=== PATIENT | female | born 1995 | race Asian ===

== ENCOUNTER 2017-06-21 12:58 | Emergency (ER) | payer OTHER ==
[~2017-06-21] VITALS: Ht 157.5 cm; Wt 55.4 kg
[2017-06-21 13:05] VITALS: Ht 157.5 cm; Wt 55.4 kg
--- NOTE | 2017-06-21 13:37 | EMERGENCY ROOM VISIT NOTE ---
History First contact with patient: 13:10 Chief Complaint: FLU LIKE SX Stated Complaint: SICK History of Present Illness The patient is a 21 year old female who presents to the Emergency Room with complaints of cold symptoms and left eye redness. The patient states that she has had cold symptoms for 2 weeks. She states she has had a sore throat, mild cough and nasal congestion. She has not had any fevers, shortness of breath, neck pain, headache, nausea or vomiting. She does state that she woke up this morning in her left eye was red and slightly irritated. She rates her pain a / 10. She does admit that she slept in her contact lenses last night. She denies any injuries to the eye. Her tetanus is up-to-date. Review of Systems A complete 10 point review of systems was reviewed with the patient with pertinent positives and negatives as per history of present illness. All else were negative. Past Medical/Surgical History Medical Problems: (1) No significant active problems Social History Smoking Status: Never Smoker Alcohol Use: occasionally Housing Status: lives with roommate Occupation Status: [employer] student Physical Exam Vital Signs Date Time Temp Pulse Resp B/P (MAP) Pulse Ox O2 Delivery O2 Flow Rate FiO2 06/21/17 14:02 36.5 101 18 101/77 99 06/21/17 13:45 101 18 101/77 99 Room Air 06/21/17 13:05 36.5 108 18 109/80 97 Room Air Physical Exam VITALS: Vitals are noted on the nurse's note and reviewed by myself. Vital signs stable. GENERAL: This is a 21-year-old female, in no acute distress, nondiaphoretic, well-developed well-nourished. SKIN: The skin was without rashes. EARS: External auditory canals clear, tympanic membranes pearly perez without erythema or effusion bilaterally. EYES: Pupils equal round and reactive to light and accommodation. Mild conjunctival injection of the left eye. There is scattered punctate uptake of fluorescein stain under UV light examination over the left cornea. No foreign body seen. NOSE: Patent, turbinates without inflammation or discharge. MOUTH: Mucous membranes moist. Tonsils are not enlarged. Pharynx without erythema or exudate. NECK: Supple without nuchal rigidity. No lymphadenopathy. HEART: Regular rate and rhythm without murmurs gallops or rubs. LUNGS: Clear to auscultation bilaterally without wheezes, rales or rhonchi. NEURO: Patient was alert and oriented to person place and time. Medical Decision & Procedures Medications Administered Medications (Trade) Dose Ordered Sig/Sage Route Start Time Stop Time Status Last Admin Dose Admin Ciprofloxacin HCl (Ciprofloxacin 0.3% Op Soln) 2 drops Q4H ONCE OP 06/21/17 13:45 06/21/17 13:46 DC 06/21/17 13:57 2 DROPS Medical Decision Differential diagnosis includes influenza, viral illness, conjunctivitis, among others. The patient is a 21-year-old female who presents today complaining of both cold symptoms and left eye irritation. The patient has a left eye conjunctivitis which appears to be secondary to her contact lens use. She will be placed on Ciloxan drops. She also seems to have a viral illness. She was advised to take ypoj-owq-byulyzb decongestants to improve her symptoms. She verbalized her understanding Based on the patient's presentation and work up, I feel the patient is stable for outpatient treatment. The patient was educated to return to the emergency department for any worsening of their current condition or new/concerning symptoms. She will follow up with [facility]. Medication Reconcilliation Current Medication List: was personally reviewed by or Blood Pressure Screening Patient's blood pressure: Normal blood pressure Impression Primary Impression: Conjunctivitis Departure Information Dispostion Home / Self-Care Condition GOOD Referrals No Doctor, Assigned (PCP) Patient Instructions My [facility] Additional Instructions You have been prescribed Ciloxan eye drops. This is an antibiotic eye drop. You should use 2 drops in the affected eye every 2 hours while awake for the first 2 days, then every 4 hours for the remaining 5 days. This is a total of a 7-day course for these antibiotic eye drops. For your nasal congestion, you may take an lmji-ddg-ppicgmo decongestant such as Sudafed or an antihistamine with decongestant like Zyrtec-D, Claritin-D or Tran-D. You may also consider using a steroid nasal spray such as Flonase. For pain control, you can use the following jzkt-mks-ukcvzhs medicines (if >12 yo): - Regular strength (325mg/tab) Tylenol (acetaminophen) 2 tabs every 4-6 hours as needed. Do not exceed 12 tablets in a 24 hour period. Avoid taking more than 4 grams (4000 mg) of Tylenol per day. This includes any other sources of acetaminophen you may take on a regular basis. - Regular strength (200 mg/tab) Advil (ibuprofen) 1-2 tabs every 4-6 hours as needed. Do not exceed a dose of 3200 mg per day. Follow-up with [facility] for recheck of URI if you have persistent redness, itching or irritation. Return to the emergency department if you have worsening pain in your eye, difficulty seeing, fever or any other new/concerning symptoms. Problem Qualifiers Primary Impression: Conjunctivitis
[2017-06-21] MEDS ORDERED: CIPROFLOXACIN HCL 0.3% OP SOLN 2.5 ML BTL OP ONE (13:45)
[2017-06-21 14:02] VITALS: BP 101/77; PULSE 101; TEMP 36.5; O2SAT 99
== END 2017-06-21 14:03 | disposition home or self-care (01) ==
LOC: C.EDB 13:01 → C.EDD 14:03
DX: H10.9 Unspecified conjunctivitis (principal); R09.81 Nasal congestion; J02.9 Acute pharyngitis, unspecified; R05 Cough